=== PATIENT | male | born 1965 | race Caucasian/White ===

== ENCOUNTER 2020-08-05 20:46 | Inpatient (IN) | payer SELFPAY ==
[~2020-08-05] VITALS: Ht 190.5 cm; Wt 129.3 kg
[2020-08-05 21:38] VITALS: Ht 190.5 cm; Wt 129.3 kg
[2020-08-05 23:09] LABS: PLATELET COUNT 323 x10^3mcL (152-348); RED CELL DISTRIBUTION WIDTH 14.3 % (12.1-16.2)
[2020-08-05 23:24] LABS: BAND NEUTROPHIL 8 % (0-10); MONOCYTE 1 % (0-7); SEGMENTED NEUTROPHILS 88 % (37-75); rbc morphology (normal/abnorm) NORMAL (NORMAL)
[2020-08-05 23:27] LABS: ALBUMIN 3.7 g/dL (3.4-5.0); ALKALINE PHOSPHATASE 182 U/L (46-116); ALT/SGPT 555 U/L (16-63); AST/SGOT 224 U/L (15-37); BILIRUBIN TOTAL 10.8 mg/dL (0.20-1.00); CALCIUM 8.8 mg/dL (8.5-10.1); CARBON DIOXIDE 21.3 mmol/L (21-32); CHLORIDE SERUM 102 mmol/L (98-107); CREATININE SERUM 0.7 mg/dL (0.7-1.3); GFR1 > 60 mL/min; GLUCOSE SERUM 175 mg/dL (74-106); SODIUM SERUM 138 mmol/L (136-145); TOTAL PROTEIN, SERUM 7.6 g/dL (6.4-8.2)
[2020-08-05 23:59] LABS: POTASSIUM SERUM 2.9 mmol/L (3.5-5.1)
[2020-08-06 00:10] LABS: LIPASE 20257 IU/L (73-393)
[2020-08-06 01:09] LABS: UA SPECIFIC GRAVITY 1.025 (1.005-1.035); microscopic required? YES; urine erythrocyte TRACE (NEGATIVE)
[2020-08-06 01:19] LABS: CHOLESTEROL/HDL RATIO 16.7
[2020-08-06 01:24] LABS: AMPHETAMINE QUAL UR NONE DETECTED (See below)
[2020-08-06 06:05] LABS: PLATELET COUNT 298 x10^3mcL (152-348); RED CELL DISTRIBUTION WIDTH 14.3 % (12.1-16.2)
[2020-08-06 06:27] LABS: CALCIUM 9.1 mg/dL (8.5-10.1); CARBON DIOXIDE 21.5 mmol/L (21-32); CHLORIDE SERUM 106 mmol/L (98-107); CREATININE SERUM 0.9 mg/dL (0.7-1.3); GFR1 > 60 mL/min; GLUCOSE SERUM 169 mg/dL (74-106); POTASSIUM SERUM 3.8 mmol/L (3.5-5.1); SODIUM SERUM 142 mmol/L (136-145)
[2020-08-06 06:30] LABS: BILIRUBIN DIRECT 9.28 mg/dL (0.0-0.2); BILIRUBIN TOTAL 11.1 mg/dL (0.20-1.00); TOTAL PROTEIN, SERUM 7.2 g/dL (6.4-8.2)
[2020-08-06 06:49] LABS: BASOPHIL % 0 % (0.2-1.5)
[2020-08-06 07:07] LABS: ALBUMIN 3.3 g/dL (3.4-5.0)
[2020-08-07 03:05] VITALS: BP 173/109
[2020-08-07 03:52] VITALS: BP 173/109
[2020-08-07 05:24] VITALS: BP 151/96
[2020-08-07 09:08] VITALS: BP 161/97
[2020-08-07 09:59] LABS: ALKALINE PHOSPHATASE 164 U/L (46-116); ALT/SGPT 365 U/L (16-63); AST/SGOT 131 U/L (15-37); CARBON DIOXIDE 22.9 mmol/L (21-32); CHLORIDE SERUM 107 mmol/L (98-107); CREATININE SERUM 0.8 mg/dL (0.7-1.3); GFR1 > 60 mL/min; GLUCOSE SERUM 128 mg/dL (74-106); POTASSIUM SERUM 3.1 mmol/L (3.5-5.1); SODIUM SERUM 142 mmol/L (136-145); TOTAL PROTEIN, SERUM 6.8 g/dL (6.4-8.2)
[2020-08-07 10:00] LABS: LACTIC DEHYDROGENASE (LDH) 420 U/L (100-190)
[2020-08-07 10:15] LABS: AMYLASE 828 U/L (25-115)
[2020-08-07 10:27] LABS: ALBUMIN 2.9 g/dL (3.4-5.0)
[2020-08-07 10:30] LABS: BILIRUBIN TOTAL 14.83 mg/dL (0.20-1.00)
[2020-08-07 10:38] LABS: LIPASE 2594 IU/L (73-393)
[2020-08-07 10:59] LABS: MAGNESIUM 1.9 mg/dL (1.8-2.4); PHOSPHOROUS 2.5 mg/dL (2.5-4.9)
[2020-08-07 13:48] VITALS: BP 135/85
[2020-08-07 17:35] VITALS: BP 111/77
[2020-08-08 08:22] LABS: PLATELET COUNT 240 x10^3mcL (152-348)
[2020-08-08 08:39] LABS: ALKALINE PHOSPHATASE 132 U/L (46-116); ALT/SGPT 240 U/L (16-63); AST/SGOT 73 U/L (15-37); BILIRUBIN DIRECT 7.12 mg/dL (0.0-0.2); CALCIUM 8.7 mg/dL (8.5-10.1); CHLORIDE SERUM 106 mmol/L (98-107); CREATININE SERUM 0.9 mg/dL (0.7-1.3); GFR1 > 60 mL/min; GLUCOSE SERUM 134 mg/dL (74-106); LACTIC DEHYDROGENASE (LDH) 434 U/L (100-190); LIPASE 573 IU/L (73-393); MAGNESIUM 1.9 mg/dL (1.8-2.4); PHOSPHOROUS 1.8 mg/dL (2.5-4.9); SODIUM SERUM 141 mmol/L (136-145); TOTAL PROTEIN, SERUM 6.5 g/dL (6.4-8.2)
[2020-08-08 09:01] LABS: ALBUMIN 2.5 g/dL (3.4-5.0)
[2020-08-08 09:02] LABS: POTASSIUM SERUM 3.2 mmol/L (3.5-5.1)
[2020-08-08 09:06] VITALS: BP 121/72
[2020-08-08 12:49] LABS: BASOPHIL % 0 % (0.2-1.5); RED CELL DISTRIBUTION WIDTH 14.8 % (12.1-16.2)
[2020-08-08 13:09] VITALS: BP 142/90
[2020-08-08 16:06] VITALS: BP 139/88
[2020-08-08 21:32] VITALS: BP 132/76
[2020-08-09 06:19] VITALS: BP 104/98
[2020-08-09 08:45] VITALS: BP 174/95
[2020-08-09 10:11] LABS: PLATELET COUNT 259 x10^3mcL (152-348)
[2020-08-09 10:37] LABS: ALKALINE PHOSPHATASE 111 U/L (46-116); ALT/SGPT 191 U/L (16-63); AST/SGOT 74 U/L (15-37); CALCIUM 8.5 mg/dL (8.5-10.1); CARBON DIOXIDE 27.2 mmol/L (21-32); CHLORIDE SERUM 105 mmol/L (98-107); GFR1 > 60 mL/min; GLUCOSE SERUM 162 mg/dL (74-106); POTASSIUM SERUM 3.6 mmol/L (3.5-5.1); SODIUM SERUM 140 mmol/L (136-145); TOTAL PROTEIN, SERUM 6.5 g/dL (6.4-8.2)
[2020-08-09 10:41] LABS: ALBUMIN 2.2 g/dL (3.4-5.0)
[2020-08-09 10:53] LABS: PHOSPHOROUS 1.9 mg/dL (2.5-4.9)
[2020-08-09 10:56] LABS: BASOPHIL % 0 % (0.2-1.5); RED CELL DISTRIBUTION WIDTH 14.8 % (12.1-16.2)
[2020-08-09 12:04] VITALS: BP 149/79
[2020-08-09 16:38] VITALS: BP 139/88
[2020-08-09 22:27] VITALS: BP 146/88
[2020-08-10 06:30] VITALS: BP 127/85
[2020-08-10 07:39] LABS: PLATELET COUNT 267 x10^3mcL (152-348)
[2020-08-10 07:59] LABS: RED CELL DISTRIBUTION WIDTH 14.6 % (12.1-16.2)
[2020-08-10 08:23] LABS: ALKALINE PHOSPHATASE 118 U/L (46-116); ALT/SGPT 131 U/L (16-63); AST/SGOT 53 U/L (15-37); BILIRUBIN TOTAL 3.2 mg/dL (0.20-1.00); CALCIUM 8.5 mg/dL (8.5-10.1); CARBON DIOXIDE 28.8 mmol/L (21-32); CHLORIDE SERUM 103 mmol/L (98-107); GFR1 > 60 mL/min; GLUCOSE SERUM 123 mg/dL (74-106); POTASSIUM SERUM 3.2 mmol/L (3.5-5.1); SODIUM SERUM 139 mmol/L (136-145); TOTAL PROTEIN, SERUM 6.3 g/dL (6.4-8.2)
[2020-08-10 08:29] LABS: ALBUMIN 2.1 g/dL (3.4-5.0)
[2020-08-10 08:58] VITALS: BP 155/103
[2020-08-10] MEDS ORDERED: ZES20 PO (12:31)
[2020-08-10] MEDS ORDERED: AUGMENTIN1 TA1 PO (12:33)
[2020-08-10 12:58] LABS: BAND NEUTROPHIL 7 % (0-10); MONOCYTE 8 % (0-7); SEGMENTED NEUTROPHILS 82 % (37-75)
[2020-08-10 12:59] LABS: rbc morphology (normal/abnorm) NORMAL (NORMAL)
[2020-08-10 13:06] VITALS: BP 144/89
[2020-08-10 13:40] VITALS: BP 144/89
[2020-08-10 18:43] VITALS: BP 138/83
== END 2020-08-10 22:31 | disposition home or self-care (01) | DRG 853 ==
LOC: EDBD 20:46 → ED 20:46 → DU 08-06 00:07 → MU 08-06 00:07 → DU 08-08 20:30
PROVIDERS: Emergency Medicine; Internal Medicine; Internal Medicine Gastroenterology; Surgery; ADMIT Family Medicine; ATTEND Family Medicine
PROC: BF141ZZ Fluoroscopy of Gallbladder, Bile Ducts and Pancreatic Ducts using Low Osmolar Contrast (ICD-10-PCS; 2020-08-07)
PROC: 0FC98ZZ Extirpation of Matter from Common Bile Duct, Via Natural or Artificial Opening Endoscopic (ICD-10-PCS; 2020-08-07 09:00)
PROC: 0DNU4ZZ Release Omentum, Percutaneous Endoscopic Approach (ICD-10-PCS; 2020-08-08)
PROC: 0FT44ZZ Resection of Gallbladder, Percutaneous Endoscopic Approach (ICD-10-PCS; principal; 2020-08-08 10:00)
DX: A41.9 Sepsis, unspecified organism (principal); K85.10 Biliary acute pancreatitis without necrosis or infection; K83.09 Other cholangitis; Z68.42 Body mass index [BMI] 45.0-49.9, adult; E87.1 Hypo-osmolality and hyponatremia; K80.62 Calculus of gallbladder and bile duct with acute cholecystitis without obstruction; I10 Essential (primary) hypertension; N20.0 Calculus of kidney; E78.5 Hyperlipidemia, unspecified; E66.01 Morbid (severe) obesity due to excess calories; E87.5 Hyperkalemia; Z20.828 Contact with and (suspected) exposure to other viral communicable diseases; D64.9 Anemia, unspecified; K76.0 Fatty (change of) liver, not elsewhere classified; D72.829 Elevated white blood cell count, unspecified; F11.10 Opioid abuse, uncomplicated; K82.8 Other specified diseases of gallbladder; R65.20 Severe sepsis without septic shock
CPT/HCPCS: 43262; 82962; C1769; G0378; G0480; J0131; J0360; J1170; J1610; J2001; J2250; J2270; J2405; J2543; J3010; J3480; J3490; J7030; J7050; J7120; Q9967